=== PATIENT | male | born 1955 | race Caucasian/White ===

== ENCOUNTER 2019-03-03 07:54 | Emergency (ER) | payer MEDICAID, OTHER ==
[2019-03-03] MEDS ORDERED: Diphtheria,Pertussis(Acell),Tetanus Vaccine 0.5 ML Syringe IM ONE (08:00)
[2019-03-03] MEDS ORDERED: Sodium Chloride 0.9% 500 ML ONE (08:50)
--- NOTE | 2019-03-03 08:53 | EDM.PDOC ---
ED HPI GENERAL MEDICAL PROBLEM - General Chief Complaint: Laceration Stated Complaint: foot laceration Time Seen by Provider: 03/03/19 08:16 Source of Information: Reports: Patient History Limitations: Reports: No Limitations - History of Present Illness INITIAL COMMENTS - FREE TEXT/NARRATIVE: This patient is a 63 year old male that presents to the ER. Patient reports that he was at home and went to put more wood in the wood burning fire. He reports he put on his rubber boots. He reports he walked out into room and stepped on a kitchen knife. He reports the knife is bigger than a kitchen knife. Patient reports he uses the knife to cut and prepare food and for multiple other things as a utility knife. Patent reports the knife went through his foot and was coming out the top. Patient reports he removed the knife from his foot. Onset: Today Onset Date: 03/03/19 Duration: Other (WORD PROCESSOR TECHNICIAN) Associated Symptoms: Reports: No Other Symptoms. 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(s) Left Foot Pain Score (Numeric/FACES): 5 - Related Data Allergies Allergy/AdvReac Type Severity Reaction Status Date / Time No Known Allergies Allergy Verified 03/03/19 07:54 Home Meds: Home Meds Ciprofloxacin HCl [Cipro] 500 mg PO BID 10 Days #20 tablet 03/03/19 [Rx] Clindamycin HCl 300 mg PO QID 7 Days #28 capsule 03/03/19 [Rx] Hydrocodone/Acetaminophen [Marmaduke 5-325 Tablet] 1 each PO Q4H PRN #24 tablet 03/11 [Rx] Past Medical History - Past Surgical History GI Surgical History: Reports: Hernia, Abdominal Musculoskeletal Surgical History: Reports: Hip Replacement, Joint Replacement Other Musculoskeletal Surgeries/Procedures:: L) knee, R) hip, R) ankle Social & Family History - Tobacco Use Smoking Status *Q: Former Smoker Used Tobacco, but Quit: Yes Month/Year Tobacco Last Used: approx 3weeks ago - Caffeine Use Caffeine Use: Reports: None - Recreational Drug Use Recreational Drug Use: No ED ROS GENERAL - Review of Systems Review Of Systems: See Below Constitutional: Reports: No Symptoms HEENT: Reports: No Symptoms Respiratory: Reports: No Symptoms Cardiovascular: Reports: No Symptoms Endocrine: Reports: No Symptoms GI/Abdominal: Reports: No Symptoms : Reports: No Symptoms Musculoskeletal: Reports: Foot Pain (left) Skin: Reports: Wound (lacerations left foot) Neurological: Reports: No Symptoms Psychiatric: Reports: No Symptoms Hematologic/Lymphatic: Reports: No Symptoms Immunologic: Reports: No Symptoms ED EXAM, SKIN/RASH Exam: See Below Exam Limited By: No Limitations General Appearance: Alert, WD/WN, No Apparent Distress, Anxious Head: Atraumatic, Normocephalic Neck: Normal Inspection Respiratory/Chest: No Respiratory Distress, Lungs Clear, Normal Breath Sounds, No Accessory Muscle Use Cardiovascular: Normal Peripheral Pulses, Regular Rate, Rhythm, No Edema, No Gallop, No JVD, No Murmur, No Rub Peripheral Pulses: 2+: Radial (L), Radial (R), Posterior Tibial (L), Dorsalis Pedis (L) Back Exam: Normal Inspection Extremities: Normal Range of Motion, No Pedal Edema, Normal Capillary Refill, Other (Left foot pain mid foot along laceration sites. Worse with movement flexion, extension. ROM intact. Sensory/motor function intact, neurovascular intact. pulses +2, cap refill < 2 sec. ). No: Limited Range of Motion Neurological: Alert, Oriented, Normal Cognition, No Motor/Sensory Deficits Psychiatric: Anxious Skin: Warm, Dry, Normal Color, No Rash, Wound/Incision Location, Skin: Lower Extremity, Left (left top of foot mid metatarsal 1st 2cm laceration: left bottom of foot distal metatarsal 1st 2.5 cm laceration.) ED SKIN PROCEDURES - Laceration/Wound Repair Left Foot Appearance: Subcutaneous, Moderately Contaminated, Other (Through and through) Distal NVT: Neuro & Vascular Intact Skin Prep: Chlorhexidine (Hibiciens), Saline Saline Irrigation (cc's): 600 Exploration/Debridement/Repair: Wound Explored, In a Bloodless Field Lac/Wound length In cm: 2 (2cm top, 2.5cm bottom) Tetanus Status Addressed: Yes Complications: No Course - Vital Signs Last Recorded V/S: Last Vital Signs Temp 97.4 F 03/03/19 07:54 Pulse 64 03/03/19 07:54 Resp 18 03/03/19 07:54 BP 136/86 03/03/19 07:54 Pulse Ox 95 03/03/19 07:54 - Orders/Labs/Meds Orders: Active Orders 24 hr Category Date Time Status Vaccines to be Administered [RC] PER UNIT ROUTINE Care 03/03/19 08:00 Active Foot 2V Lt [CR] Stat Exams 03/03/19 08:18 Taken Clindamycin Phosphate in D5W [Cleocin in D5W] 600 mg Med 03/03/19 09:04 Active Premix Bag 1 bag IV ONETIME Levofloxacin/Dextrose 5%-Water [Levaquin in D5W 500 MG/ Med 03/03/19 09:04 Active 100 ML] 500 mg Premix Bag 1 bag IV ONETIME Medication Orders Clindamycin Phosphate 600 mg/ (Premix) 50 mls @ 100 mls/hr IV ONETIME ONE Stop: 03/03/19 09:33 Levofloxacin/Dextrose 500 mg/ (Premix) 100 mls @ 100 mls/hr IV ONETIME ONE Stop: 03/03/19 10:03 Last Admin: 03/03/19 09:09 Dose: 100 mls/hr Meds: Medications Generic Name Dose Route Start Last Admin Trade Name Freq PRN Reason Stop Dose Admin Clindamycin Phosphate 600 mg/ 50 mls @ 100 mls/hr 03/03/19 09:04 Premix IV 03/03/19 09:33 ONETIME ONE Levofloxacin/Dextrose 500 mg/ 100 mls @ 100 mls/hr 03/03/19 09:04 03/03/19 09 :09 Premix IV 03/03/19 10:03 100 mls/hr ONETIME ONE Administration Discontinued Medications Generic Name Dose Route Start Last Admin Trade Name Freq PRN Reason Stop Dose Admin Acetaminophen 1,000 mg 03/03/19 09:11 03/03/19 09:14 Tylenol Extra Strength PO 03/03/19 09:12 1,000 mg ONETIME ONE Administration Diphtheria/Tetanus/Acell Pertussis 0.5 ml 03/03/19 08:00 03/03/19 08:07 Adacel IM 03/03/19 08:01 0.5 ml .ONCE ONE Administration Sodium Chloride Confirm 03/03/19 08:50 Normal Saline Administered 03/03/19 08:51 Dose 500 mls @ as directed .ROUTE .STK-MED ONE Morphine Sulfate 4 mg 03/03/19 09:07 03/03/19 09:11 Morphine IVPUSH 03/03/19 09:08 Not Given ONETIME ONE Ondansetron HCl 4 mg 03/03/19 09:07 03/03/19 09:11 Zofrthanh IVPUSH 03/03/19 09:08 Not Given NOW STA - Radiology Interpretation Free Text/Narrative:: Left foot xray: No fx, no FB seen, no dislocation. - Re-Assessments/Exams Free Text/Narrative Re-Assessment/Exam: 03/03/19 09:00 I called and spoke to Dr. Banks podiatry surgeon at [facility] about this patient. He reports this does not need surgical clean out or intervention. He reports to put him on Clindamycin and Cipro, irrigate the wounds out, cover the foot, and discharge home. He reports to not close the wounds. He reports to have patient do daily dressing changes. Departure - Departure Time of Disposition: :44 Disposition: Home, Self-Care 01 Condition: Fair Clinical Impression: Knife wound, Puncture wound - injury - Discharge Information *PRESCRIPTION DRUG MONITORING PROGRAM REVIEWED*: No *COPY OF PRESCRIPTION DRUG MONITORING REPORT IN PATIENT LAXMI: No Prescriptions: Ciprofloxacin HCl [Cipro] 500 mg PO BID 10 Days #20 tablet Clindamycin HCl 300 mg PO QID 7 Days #28 capsule Hydrocodone/Acetaminophen [Marmaduke 5-325 Tablet] 1 each PO Q4H PRN #24 tablet PRN Reason: Pain Instructions: Puncture Wound, [id number], Laceration Care, Adult, Pain Medicine Instructions, [id number], Nonsutured Laceration Care Referrals: PCP,None [Primary Care Provider] - Forms: ED Department Discharge Additional Instructions: Followup with primary care provider or clinic tomorrow for dressing change and evaluation of the foot Return to the ER for worsening of condition or any emergent concerns such as redness, drainage, fever, vomiting, increase in pain or other concerns Need to wash out wounds with soap and water once a day, clean very well, rinse, dry, and change dressing once a day Take IbuProfen as needed for pain: If not working, then may take: Marmaduke 5/325mg 1-2 pills every 4-6 hours as needed for pain #24 no refill Clindamycin 300mg 1 pill four times a day for 7 days #28 no refill Cipro 500mg 1 pill twice a day for 10 days #20 no refill If needed: May folllow-up with Dr. Banks pediatric occupational therapist at [facility] Crutches: No weight bearing until wounds have healed and pain has resolved to the foot - My Orders Last 24 Hours: My Active Orders 03/03/19 08:00 Vaccines to be Administered [RC] PER UNIT ROUTINE 03/03/19 08:18 Foot 2V Lt [CR] Stat 03/03/19 09:04 Clindamycin Phosphate in D5W [Cleocin in D5W] 600 mg Premix Bag 1 bag IV ONETIME Levofloxacin/Dextrose 5%-Water [Levaquin in D5W 500 MG/100 ML] 500 mg Premix Bag 1 bag IV ONETIME - Assessment/Plan Last 24 Hours: My Active Orders 03/03/19 08:00 Vaccines to be Administered [RC] PER UNIT ROUTINE 03/03/19 08:18 Foot 2V Lt [CR] Stat 03/03/19 09:04 Clindamycin Phosphate in D5W [Cleocin in D5W] 600 mg Premix Bag 1 bag IV ONETIME Levofloxacin/Dextrose 5%-Water [Levaquin in D5W 500 MG/100 ML] 500 mg Premix Bag 1 bag IV ONETIME Plan: PLEASE SEE RN NOTE FOR PFSH.
[2019-03-03] MEDS ORDERED: Levofloxacin/Dextrose 5%-Water 500 MG in Premix Bag 1 BAG IV ONE (09:04)
[2019-03-03] MEDS ORDERED: Clindamycin Phosphate in D5W 600 MG in Premix Bag 1 BAG IV ONE ×2 (09:04)
[2019-03-03] MEDS ORDERED: Ondansetron 4 MG/2 ML SDV IVPUSH STA (09:07)
[2019-03-03] MEDS ORDERED: Acetaminophen 500 MG Tab PO ONE (09:11)
== END 2019-03-03 10:20 | disposition home or self-care (01) ==
LOC: CC.ED 07:54
DX: S91.332A Puncture wound without foreign body, left foot, initial encounter (principal); S91.312A Laceration without foreign body, left foot, initial encounter; W26.0XXA Contact with knife, initial encounter; Z23 Encounter for immunization; Y92.009 Unspecified place in unspecified non-institutional (private) residence as the place of occurrence of the external cause
CPT/HCPCS: 73620; 90471; 90715; 96365; 96367; 99283; A9270; J1956; J3490; J7040

== ENCOUNTER 2019-04-09 15:00 | Emergency (ER) | payer SELFPAY ==
[2019-04-09] MEDS ORDERED: Ketorolac 30 MG/ML SDV IVPUSH ONE (15:30)
[2019-04-09] MEDS ORDERED: Lidocaine 1% 20 ML MDV INJECT ONE (15:44)
[2019-04-09] MEDS ORDERED: Bacitracin/Neomycin/Polymyxin B Oint 0.9 GM U/D Packet TOP ONE (16:23)
[2019-04-09 16:35] VITALS: BP 141/82; PULSE 66
--- NOTE | 2019-04-09 17:12 | EDM.PDOC ---
ED HPI GENERAL MEDICAL PROBLEM - General Chief Complaint: Laceration Stated Complaint: laceration Time Seen by Provider: 04/09/19 15:26 Source of Information: Reports: Patient History Limitations: Reports: No Limitations - History of Present Illness INITIAL COMMENTS - FREE TEXT/NARRATIVE: Morris is a 63 yo male who presents to the ED via private vehicle with concerns of a laceration to his left hand/thumb. States he was using a stopper grinder and the grinding blade broke and caught his left hand. States it went thru the cuff of his jacket and cut him. Is concerned he broke his hand. He admits to a lot of discomfort and rates his pain a 9 out of 10. Tetanus was updated a month ago. Left Hand Pain Score (Numeric/FACES): 9 - Related Data Allergies Allergy/AdvReac Type Severity Reaction Status Date / Time No Known Allergies Allergy Verified 04/09/19 15:11 Home Meds: Home Meds . [No Known Home Meds] 04/09/19 [History] Past Medical History - Infectious Disease History Infectious Disease History: Reports: None - Past Surgical History GI Surgical History: Reports: Hernia, Abdominal Musculoskeletal Surgical History: Reports: Hip Replacement, Joint Replacement Other Musculoskeletal Surgeries/Procedures:: L) knee, R) hip, R) ankle Social & Family History - Family History Family Medical History: Noncontributory - Tobacco Use Smoking Status *Q: Never Smoker - Caffeine Use Caffeine Use: Reports: Coffee - Recreational Drug Use Recreational Drug Use: Yes ED ROS GENERAL - Review of Systems Review Of Systems: Comprehensive ROS is negative, except as noted in HPI. ED EXAM, SKIN/RASH Exam: See Below Exam Limited By: No Limitations General Appearance: Alert Extremities: Limited Range of Motion (d/t discomfort) Skin: Wound/Incision (5cm and 1.5cm lacerations to dorsal aspect of left hand along 1st metacarpal. Mild bleeding is noted. No tendon involvment seen. ) Location, Skin: Upper Extremity, Left ED SKIN PROCEDURES - Laceration/Wound Repair Left Dorsal Hand Appearance: Subcutaneous, Irregular, Clean Distal NVT: Neuro & Vascular Intact, No Tendon Injury Anesthetic Type: Local Local Anesthesia - Lidocaine (Xylocaine): 1% Plain Local Anesthetic Volume: 4cc Skin Prep: Chlorhexidine (Hibiciens), Sterile Drape Saline Irrigation (cc's): 50 Exploration/Debridement/Repair: Wound Explored, In a Bloodless Field, Explored to Base, No Foreign Material Found Closed with: Sutures Lac/Wound length In cm: 5 (2nd wound was 1.5cm) Suture Size: 4-0 # of Sutures: 10 Suture Type: Prolene, Interrupted, Simple Tetanus Status Addressed: Yes Complications: No Course - Vital Signs Last Recorded V/S: Last Vital Signs Temp 97.9 F 04/09/19 15:06 Pulse 66 04/09/19 16:33 Resp 20 04/09/19 15:06 BP 141/82 H 04/09/19 16:33 Pulse Ox 94 L 04/09/19 15:06 - Orders/Labs/Meds Orders: Active Orders 24 hr Category Date Time Status Hand Comp Min 3V Lt [CR] Stat Exams 04/09/19 15:28 Taken Meds: Medications Discontinued Medications Generic Name Dose Route Start Last Admin Trade Name Freq PRN Reason Stop Dose Admin Ketorolac Tromethamine 15 mg 04/09/19 15:30 04/09/19 15:37 Toradol IVPUSH 04/09/19 15:31 15 mg ONETIME ONE Administration Lidocaine HCl 5 - 10 ml 04/09/19 15:44 04/09/19 15:56 Xylocaine 1% INJECT 04/09/19 15:45 10 ml ONETIME ONE Administration Neomycin/Polymyxin/Bacitracin 2 each 04/09/19 16:23 04/09/19 16:27 Triple Antibiotic Oint TOP 04/09/19 16:24 2 each ONETIME ONE Administration Departure - Departure Time of Disposition: 17:06 Disposition: Home, Self-Care 01 Clinical Impression: Laceration of left hand Qualifiers: Encounter type: initial encounter Foreign body presence: without foreign body Qualified Code(s): S61.412A - Laceration without foreign body of left hand, initial encounter - Discharge Information Instructions: Laceration Care, Adult, [id number] Referrals: PCP,None [Primary Care Provider] - Additional Instructions: 1) Keep wound clean and dry for 48 hours. 2) Refrain from soaking. 3) If any complications or signs of infection, recommend reevaluation 4) Apply neosporin or triple antibiotic ointment daily 5) Sutures out in 10-14 days Sepsis Event Note - Evaluation Sepsis Screening Result: No Definite Risk - Focused Exam Vital Signs: Vital Signs Temp Pulse Resp BP Pulse Ox 12/18/19 16:33 66 141/82 H 04/09/19 15:06 97.9 F 83 20 148/101 H 94 L Date Exam was Performed: 04/09/19 Time Exam was Performed: 17:06 - Problem List & Annotations (1) Laceration of left hand SNOMED Code(s): 115439263 Code(s): S61.412A - LACERATION WITHOUT FOREIGN BODY OF LEFT HAND, INIT ENCNTR Status: Acute Current Visit: Yes Qualifiers: Encounter type: initial encounter Foreign body presence: without foreign body Qualified Code(s): S61.412A - Laceration without foreign body of left hand, initial encounter - My Orders Last 24 Hours: My Active Orders 04/09/19 15:28 Hand Comp Min 3V Lt [CR] Stat - Assessment/Plan Last 24 Hours: My Active Orders 04/09/19 15:28 Hand Comp Min 3V Lt [CR] Stat Plan: X-rays obtained of left hand. No fracture noted. 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 Wounds were cleansed and soaked today. No complications with closure. See procedure and additional instructions.
== END 2019-04-09 17:16 | disposition home or self-care (01) ==
LOC: CC.ED 15:00
DX: S61.412A Laceration without foreign body of left hand, initial encounter (principal); W23.0XXA Caught, crushed, jammed, or pinched between moving objects, initial encounter
CPT/HCPCS: 12002; 73130-LT; 96374; 99283-25; J1885; J2001

== ENCOUNTER 2021-12-15 07:10 | Emergency (ER) | payer MEDICARE, MEDICAID ==
[2021-12-15 08:33] LABS: HEMOGLOBIN A1C 5.7 % (4.8-5.6)
== END 2021-12-15 08:35 | disposition left against medical advice (07) ==
LOC: CC.ED 07:10
DX: I87.2 Venous insufficiency (chronic) (peripheral) (principal); S90.512A Abrasion, left ankle, initial encounter; R73.9 Hyperglycemia, unspecified; G62.9 Polyneuropathy, unspecified; Z88.5 Allergy status to narcotic agent
CPT/HCPCS: 36415; 73610-LT; 80053; 83036; 83735; 85025; 99283; 99284

== ENCOUNTER 2022-01-17 15:23 | Emergency (ER) | payer MEDICARE, MEDICAID | END 2022-01-17 17:48 | disposition home or self-care (01) | LOC: CC.ED 15:23 | DX: S16.1XXA Strain of muscle, fascia and tendon at neck level, initial encounter (principal); S70.02XA Contusion of left hip, initial encounter; S80.02XA Contusion of left knee, initial encounter; M16.12 Unilateral primary osteoarthritis, left hip; S90.512A Abrasion, left ankle, initial encounter; Z88.5 Allergy status to narcotic agent; W01.0XXA Fall on same level from slipping, tripping and stumbling without subsequent striking against object, initial encounter | CPT/HCPCS: 72040; 73560-LT; 73610-LT; 99283; 99284 ==

== ENCOUNTER 2024-12-19 17:38 | Emergency (ER) | payer MEDICARE, MEDICAID ==
[2024-12-19] MEDS: Take Home: Ketorolac 10 MG Tab, 4 Tab Pack PO ONE (20:37)
[2024-12-19] MEDS: Take Home: Amoxicillin 500 MG, 6 Cap Pack PO ONE (20:37)
== END 2024-12-19 18:05 | disposition home or self-care (01) ==
LOC: CC.ED 17:38
DX: K04.7 Periapical abscess without sinus (principal); Z88.5 Allergy status to narcotic agent; Z79.899 Other long term (current) drug therapy
CPT/HCPCS: 99282; A9270-GY